=== PATIENT | female | born 1960 | race Caucasian/White ===

== ENCOUNTER 2017-11-13 15:45 | Emergency (ER) | payer OTHER ==
[~2017-11-13] VITALS: Ht 165.1 cm; Wt 63.5 kg
[2017-11-13 16:00] VITALS: BP 143/84; PULSE 80; RESP 18; TEMP 98; O2SAT 97
[2017-11-13] MEDS ORDERED: KETOROLAC TROMETHAMINE 30 MG/ML (IVP) VIAL IV PUSH ONE (16:45)
[2017-11-13] MEDS ORDERED: SODIUM CHLORIDE 0.9% FLUSH 10 ML FLUSH IVF PRN (16:45)
--- NOTE | 2017-11-13 16:46 | PD ---
HPI Chief Complaint: Chest Pain Time Seen by Provider: 16:26 Travel History International Travel<30 days: No Contact w/Intl Traveler<30days: No Traveled to known affect area: No History of Present Illness HPI 57-year-old female presents to the emergency department for evaluation of right- sided chest pain that started yesterday. She currently rates the pain 7/10, pressure, radiates up the chest. Patient states the pain is worse with movement , moving the right arm, lying down. She reports associated cough with yellow phlegm. She states the pain feels "in my lungs". Patient reports no chronic medical problems. She takes no prescribed medications. She denies any history of recent surgery or travel. [place], but has been here since June. She denies any leg edema. No hemoptysis. No history DVT or PE. Patient is not tachycardic. Patient denies any shortness of breath. Patient denies any abdominal pain. No nausea, vomiting, diarrhea. No headaches. She denies any history of IV drug use. Alleviating factor is sitting up and laying still. Moderate severity. PFSH Past Medical History Medical History: Denies Significant Hx Past Surgical History Hysterectomy: Yes Neurologic Surgery: Yes (CERVICAL SX AND PLATE ) Social History Alcohol Use: Yes (OCC) Tobacco Use: Yes Substance Use: No Allergies-Medications (Allergen,Severity, Reaction): Coded Allergies: No Known Allergies (Unverified , 11/13/17) Reported Meds & Prescriptions Reported Meds & Active Scripts Active No Active Prescriptions or Reported Medications Review of Systems Except as stated in HPI: all other systems reviewed are Neg Physical Exam Narrative GENERAL: Well-nourished, well-developed female patient, afebrile. SKIN: Focused skin assessment warm/dry. HEAD: Normocephalic. Atraumatic. EYES: No scleral icterus. No injection or drainage. NECK: Supple, trachea midline. No JVD or lymphadenopathy. CARDIOVASCULAR: Regular rate and rhythm without murmurs, gallops, or rubs. Bilateral radial and pedal pulses are 2+ RESPIRATORY: Breath sounds equal bilaterally. No accessory muscle use. Lung sounds are clear to auscultation. GASTROINTESTINAL: Abdomen soft, non-tender, nondistended. MUSCULOSKELETAL: No cyanosis, or edema. BACK: Nontender without obvious deformity. No CVA tenderness. Data Data Last Documented VS Vital Signs Date Time Temp Pulse Resp B/P (MAP) Pulse Ox O2 Delivery O2 Flow Rate FiO2 11/13/17 16:00 98.0 80 18 143/84 (103) 97 Orders Orders Electrocardiogram (11/13/17 ) Electrocardiogram (11/13/17 16:41) Basic Metabolic Panel (Bmp) (11/13/17 16:41) Ckmb (Isoenzyme) Profile (11/13/17 16:41) Complete Blood Count With Diff (11/13/17 16:41) Magnesium (Mg) (11/13/17 16:41) Prothrombin Time / Inr (Pt) (11/13/17 16:41) Act Partial Throm Time (Ptt) (11/13/17 16:41) Troponin I (11/13/17 16:41) Ecg Monitoring (11/13/17 16:41) Bilateral Bp Monitoring (11/13/17 16:41) Iv Access Insert/Monitor (11/13/17 16:41) Oximetry (11/13/17 16:41) Oxygen Administration (11/13/17 16:41) Sodium Chloride 0.9% Flush (Ns Flush) (11/13/17 16:45) Chest, Pa & Lat (11/13/17 16:41) Ketorolac Inj (Toradol Inj) (11/13/17 16:45) Labs Laboratory Tests Test 11/13/17 16:59 White Blood Count 9.5 TH/MM3 Red Blood Count 4.41 MIL/MM3 Hemoglobin 14.2 GM/DL Hematocrit 42.2 % Mean Corpuscular Volume 95.9 FL Mean Corpuscular Hemoglobin 32.1 PG Mean Corpuscular Hemoglobin Concent 33.5 % Red Cell Distribution Width 12.4 % Platelet Count 367 TH/MM3 Mean Platelet Volume 6.9 FL Neutrophils (%) (Auto) 67.8 % Lymphocytes (%) (Auto) 23.4 % Monocytes (%) (Auto) 7.6 % Eosinophils (%) (Auto) 0.6 % Basophils (%) (Auto) 0.6 % Neutrophils # (Auto) 6.5 TH/MM3 Lymphocytes # (Auto) 2.2 TH/MM3 Monocytes # (Auto) 0.7 TH/MM3 Eosinophils # (Auto) 0.1 TH/MM3 Basophils # (Auto) 0.1 TH/MM3 CBC Comment DIFF FINAL Differential Comment Prothrombin Time 9.9 SEC Prothromb Time International Ratio 1.0 RATIO Activated Partial Thromboplast Time 26.7 SEC Blood Urea Nitrogen 21 MG/DL Creatinine 1.04 MG/DL Random Glucose 85 MG/DL Calcium Level 9.6 MG/DL Magnesium Level 2.3 MG/DL Sodium Level 141 MEQ/L Potassium Level 4.2 MEQ/L Chloride Level 106 MEQ/L Carbon Dioxide Level 27.0 MEQ/L Anion Gap 8 MEQ/L Estimat Glomerular Filtration Rate 54 ML/MIN Total Creatine Kinase 98 U/L Troponin I LESS THAN 0.02 NG/ML MDM Medical Decision Making Medical Screen Exam Complete: Yes Emergency Medical Condition: Yes Medical Record Reviewed: Yes Interpretation(s) chest x-ray - CONCLUSION: 1. No acute cardiopulmonary disease. Differential Diagnosis Chest wall pain versus anxiety versus ACS versus pneumonia versus pneumothorax Narrative Course 57-year-old female presents to the emergency department for evaluation of right- sided chest pain that started yesterday. She does appear well on exam. CBC, BMP, CK, troponin, magnesium, PTT, PT/INR, chest x-ray ordered and pending. Patient is given Toradol 30 mg IV. CBC shows no acute abnormality. BMP shows BUN 21, creatinine 1.04. Magnesium is 2.3. CK is 90. Troponin is less than 0.02. Coags are unremarkable. Chest x-ray shows no acute cardiopulmonary disease. Patient denies any shortness of breath. She has no risk factors for pulmonary embolism. Pain is atypical and reproduced with palpation and movement. Physical exam and symptoms are consistent with chest wall pain. Should be discharged prescription for ibuprofen and benzonatate capsules. She is encouraged to follow-up with her primary care physician. She is return here for any acute worsening of symptoms. I discussed the case with my attending physician, Dr. Martin, who agrees with plan and disposition. Diagnosis Primary Impression: Chest wall pain Referrals: Primary Care Physician call for appointment Patient Instructions: Chest Wall Pain (ED), General Instructions Additional Instructions: Take ibuprofen as directed as needed with food for pain. Take benzonatate capsules as directed as needed for cough. Follow-up with a primary care physician. Return to the emergency department for any acute worsening of symptoms. Med/Other Pt SpecificInfo: Prescription(s) given Scripts Benzonatate (Benzonatate) 200 Mg Cap 200 MG PO TID Y for COUGH, #21 CAP 0 Refills Prov: Lakesha Sanches 11/13/17 Ibuprofen (Ibuprofen) 600 Mg Tab 600 MG PO TID Y for PAIN SCALE 1 TO 10, #21 TAB 0 Refills Prov: Lakesha Sanches 11/13/17 Disposition: 01 DISCHARGE HOME Condition: Stable Lakesha Sanches November 13, 2017 16:46
--- NOTE | 2017-11-13 17:18 | RADRPT ---
EXAM DATE/TIME: 11/13/2017 16:56 [facility] COMPARISON: No previous studies available for comparison. INDICATIONS : Pain RT side of chest for 24 hours. MEDICAL HISTORY : None. SURGICAL HISTORY : None. ENCOUNTER: Initial ACUITY: 1 day PAIN SCORE: 7/10 LOCATION: Right chest FINDINGS: PA and lateral views of the chest demonstrate the lungs to be symmetrically aerated without evidence of mass, infiltrate or effusion. The cardiomediastinal contours are unremarkable. Lower cervical fi xation hardware. Osseous structures are intact. CONCLUSION: 1. No acute cardiopulmonary disease. Cresencio Meek MD on November 13, 2017 at 17:16 Board Certified Radiologist. This report was verified electronically.
[2017-11-13 17:37] LABS: AUTOMATED NEUTROPHIL # 6.5 TH/MM3 (1.8-7.7); BASOPHIL # 0.1 TH/MM3 (0-0.2); BASOPHIL % 0.6 % (0.0-2.0); EOSINOPHIL # 0.1 TH/MM3 (0-0.4); EOSINOPHIL % 0.6 % (0.0-4.0); HEMATOCRIT 42.2 % (35.0-46.0); HEMOGLOBIN 14.2 GM/DL (11.6-15.3); LYMPH % 23.4 % (9.0-44.0); LYMPHOCYTE # 2.2 TH/MM3 (1.0-4.8); MEAN CELL VOLUME 95.9 FL (80.0-100.0); MEAN CORPUSCULAR HEMOGLOBIN 32.1 PG (27.0-34.0); MEAN CORPUSCULAR HGB CONC 33.5 % (32.0-36.0); MEAN PLATELET VOLUME 6.9 FL (7.0-11.0); MONO % 7.6 % (0.0-8.0); MONOCYTE # 0.7 TH/MM3 (0-0.9); NEUT % 67.8 % (16.0-70.0); PLATELET COUNT 367 TH/MM3 (150-450); RED BLOOD COUNT 4.41 MIL/MM3 (4.00-5.30); RED CELL DISTRIBUTION WIDTH 12.4 % (11.6-17.2); WHITE BLOOD COUNT 9.5 TH/MM3 (4.0-11.0)
[2017-11-13 17:44] LABS: PROTHROMBIN TIME - PATIENT 9.9 SEC (9.8-11.6)
[2017-11-13 17:58] LABS: BLOOD UREA NITROGEN 21 MG/DL (7-18); CALCIUM 9.6 MG/DL (8.5-10.1); CHLORIDE 106 MEQ/L (98-107); CREATININE 1.04 MG/DL (0.50-1.00); GLOMERULAR FILTRATION RATE 54 ML/MIN (>89); GLUCOSE,RANDOM 85 MG/DL (74-106); MAGNESIUM 2.3 MG/DL (1.5-2.5); SODIUM (NA) 141 MEQ/L (136-145)
[2017-11-13 18:02] LABS: TROPONIN I LESS THAN 0.02 NG/ML (0.02-0.05)
[2017-11-13] MEDS ORDERED: BENZ1CAP51 PO (18:40)
[2017-11-13] MEDS ORDERED: IBUP-232 PO (18:40)
--- NOTE | 2017-11-13 22:44 | EKG ---
Date Performed: 11/13/2017 Time Performed: 16:16:16 PTAGE: 57 years EKG: Sinus rhythm LOW QRS VOLTAGE IN PRECORDIAL LEADS BORDERLINE ECG NO PREVIOUS TRACING DOCTOR: Camacho Cruz Interpretating Date/Time 11/13/2017 22:43:31
== END 2017-11-13 19:40 | disposition home or self-care (01) ==
LOC: NEPC 15:45
DX: R07.89 Other chest pain (principal); R94.31 Abnormal electrocardiogram [ECG] [EKG]; R05 Cough; Z72.0 Tobacco use
CPT/HCPCS: 71046; 80048; 82550; 83735; 84484; 85025; 85610; 85730; 93005; 96374; 99285; J1885